=== PATIENT | female | born 1950 | race Hispanic/Latino ===

== ENCOUNTER 2018-08-13 11:19 | Emergency (ER) | payer MEDICARE ==
[2018-08-13 11:56] VITALS: RESP 24; TEMP 98
[2018-08-13 12:47] LABS: BASO % 0.3 % (0.0-2.0); EOS # 0.2 K/uL (0.0-0.7); EOS % 2.3 % (0.0-4.0); HEMOGLOBIN 13.5 g/dL (11.0-16.0); LYMPH # 1.9 K/uL (1.0-4.3); LYMPH % 25.5 % (20.0-40.0); MEAN CORPUSCULAR HEMOGLOBIN 30.8 pg (27.0-31.0); MEAN PLATELET VOLUME 7.9 fL (7.2-11.7); MONO # 0.5 K/uL (0.0-0.8); MONO % 6.3 % (0.0-10.0); NEUT % 65.6 % (50.0-75.0); RBC 4.39 Mil/uL (3.80-5.20); WHITE BLOOD COUNT 7.6 K/uL (4.8-10.8)
[2018-08-13 12:51] LABS: MEAN CELL VOLUME 93.4 fL (81.0-99.0)
--- NOTE | 2018-08-13 12:54 | C.PDOC ---
History Of Present Illness 68 years old female presents to ED for complaints of palpitations. Patient she has no symptoms now but has been experiencing intermittent palpitations that began 2 months ago. Patient states palpitations worsened last night which pr ompted ED visit. Patient also states she saw Dr. Negron (Presentation Manager). Denies any other physical complaints. Time Seen by Provider: 08/13/18 11:39 Chief Complaint (Nursing): Chest Pain History Per: Patient History/Exam Limitations: no limitations Onset/Duration Of Symptoms: Hrs Current Symptoms Are (Timing): Still Present Modifying Factors: None Exacerbating Factors: None Alleviating Factors: None Recent travel outside of the [place]: No Past Medical History Reviewed: Historical Data, Nursing Documentation, Vital Signs Vital Signs: Last Vital Signs Temp 98.0 F 08/13/18 11:31 Pulse 66 08/13/18 11:31 Resp 24 08/13/18 11:31 BP 138/61 08/13/18 11:31 Pulse Ox 97 08/13/18 11:31 - Medical History PMH: Arthritis, Asthma, CAD, Diverticulitis, Gastritis, HTN, Hypercholesterolemia Surgical History: No Surg Hx Family History: States: Unknown Family Hx - Social History Hx Tobacco Use: No Hx Alcohol Use: No Hx Substance Use: No - Immunization History Hx Tetanus Toxoid Vaccination: No Hx Influenza Vaccination: No Hx Pneumococcal Vaccination: No Review Of Systems Except As Marked, All Systems Reviewed And Found Negative. Constitutional: Negative for: Fever, Chills Cardiovascular: Negative for: Chest Pain Respiratory: Negative for: Shortness of Breath Gastrointestinal: Negative for: Nausea, Vomiting, Abdominal Pain, Diarrhea Skin: Negative for: Rash Neurological: Negative for: Weakness, Numbness Physical Exam - Physical Exam Appears: Non-toxic, No Acute Distress Skin: Normal Color, Warm, Dry, No Rash Head: Atraumatic, Normacephalic Eye(s): bilateral: Normal Inspection, PERRL, EOMI Oral Mucosa: Moist Neck: Normal ROM, Supple Chest: Symmetrical, No Tenderness Cardiovascular: Rhythm Regular, No Murmur Respiratory: Normal Breath Sounds, No Rales, No Rhonchi, No Wheezing Gastrointestinal/Abdominal: Bowel Sounds (Active ), Soft, No Tenderness, No Guarding, No Rebound Extremity: Normal ROM Extremity: Bilateral: Atraumatic, Normal Color And Temperature, Normal ROM Pulses: Left Radial: Normal, Right Radial: Normal Neurological/Psych: Oriented x3, Normal Speech Gait: Steady ED Course And Treatment - Laboratory Results Result Diagrams: 08/13/18 12:38 08/13/18 12:38 O2 Sat by Pulse Oximetry: 97 (RA) Pulse Ox Interpretation: Normal - Other Rad CXR X-Ray: Viewed By Me, Read By Radiologist Interpretation: Date of service: 08/13/2018. HISTORY: chest pain. COMPARISON: Comparison made with chest radiograph dated 02/11/2015. FINDINGS: LUNGS: No active pulmonary disease. PLEURA: No significant pleural effusion identified, no pneumothorax apparent. CARDIOVASCULAR: No aortic atherosclerotic calcification present. Mild cardiomegaly. No pulmonary vascular congestion. OSSEOUS STRUCTURES: No significant abnormalities. VISUALIZED UPPER ABDOMEN: Normal. OTHER FINDINGS: None. IMPRESSION: No active disease. Against Medical Advice - AMA Patient Left Against Medical Advice: The patient declines admission to the hospital and wishes to leave the Emergency Department. This action is against my medical advice. This decision was made with informed refusal. The patient was told that admission to the hospital is necessary. Explanation of the reasons why were discussed. The risks of leaving were explained to the patient and include, but are not limited to, worsening of known or currently unknown conditions, permanent disability and from undiagnosed or untreated conditions. The patient has the capacity to make this informed decision and understands my explanation of the current medical problem and risks of leaving. The patient voluntarily accepts these risks and signed an AMA form documenting our conversation. The patient was given the opportunity to ask questions and reconsider. The patient was encouraged to return to the Emergency Department at any time for further care. Medical Decision Making Medical Decision Making: Plan: * Blood work * EKG * CXR Results were discussed with the patient. 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 Disposition - Disposition Referrals: Stan Herrera MD [Staff Provider] - Disposition: AGAINST MEDICAL ADVICE Disposition Time: 14:16 Condition: STABLE Additional Instructions: Follow up with the medical doctor within 1-2 days without fail. Return if worsened. Instructions: Chest Pain Forms: [employer] (Tajik) - POA Present On Arrival: None - Clinical Impression Clinical Impression: Chest pain, Palpitations - PA / [employer] / Resident Statement MD/DO has reviewed & agrees with the documentation as recorded. - Scribe Statement The provider has reviewed the documentation as recorded by the Darronibe Twin Barragan All medical record entries made by the Darronibivan were at my direction and personally dictated by me. I have reviewed the chart and agree that the record accurately reflects my personal performance of the history, physical exam, medical decision making, and the department course for this patient. I have also personally directed, reviewed, and agree with the discharge instructions and disposition.
[2018-08-13 12:55] LABS: ALB/GLOB RATIO 1.3 (1.0-2.1); ALBUMIN 4.6 g/dL (3.5-5.0); BLOOD UREA NITROGEN 27 mg/dL (7-17); CALCIUM 9.4 mg/dl (8.6-10.4); GFR NON-AFRICAN AMERICAN > 60
[2018-08-13 12:56] LABS: PROTHROMBIN TIME 11.4 SECONDS (9.7-12.2)
[2018-08-13 13:04] LABS: ALT/SGPT 16 U/L (9-52); AST/SGOT 33 U/L (14-36)
[2018-08-13 13:07] LABS: B-TYPE NATRIURETIC PEPTIDE 82.9 pg/mL (0-900)
[2018-08-13 14:21] VITALS: BP 135/57; PULSE 63
--- NOTE | 2018-08-13 15:49 | RAD ---
Date of service: 08/13/2018 HISTORY: chest pain COMPARISON: Comparison made with chest radiograph dated 02/11/2015 FINDINGS: LUNGS: No active pulmonary disease. PLEURA: No significant pleural effusion identified, no pneumothorax apparent. CARDIOVASCULAR: No aortic atherosclerotic calcification present. Mild cardiomegaly. No pulmonary vascular congestion. OSSEOUS STRUCTURES: No significant abnormalities. VISUALIZED UPPER ABDOMEN: Normal. OTHER FINDINGS: None. IMPRESSION: No active disease.
[2018-08-13 16:02] VITALS: O2SAT 97
--- NOTE | 2018-08-14 22:30 | CARD ---
APPROVED REPORT Date of service: 08/13/2018 EKG Measurement Heart [id number] VT [id number] <Conclusion> Normal sinus rhythm Low voltage QRS Borderline ECG
== END 2018-08-13 14:33 | disposition left against medical advice (07) ==
LOC: C.ER 11:19
DX: R07.9 Chest pain, unspecified (principal); R00.2 Palpitations